=== PATIENT | female | born 1970 | race Caucasian/White ===

== ENCOUNTER 2017-04-29 13:58 | Inpatient (IN) ==
[2017-04-29] MEDS ORDERED: ALBUTEROL/IPRATROPIUM 3 ML NEB RESP TX STA (14:40)
[2017-04-29] MEDS ORDERED: methylPREDNISolone SOD SUC 40 MG/1 ML VIAL IV STA (14:40)
[2017-04-29] MEDS ORDERED: methylPREDNISolone SOD SUC 40 MG/1 ML VIAL ONE (14:51)
--- NOTE | 2017-04-29 15:00 | XRay Report ---
Portable chest. Indication: Shortness of breath. Comparison: January 16, 2017. The heart is normal in size. The left lung is clear. A prominent platelike area of atelectasis has developed in the right lung base. No pneumothorax or pleural effusion. Osseous structures are stable. Impression: Right basilar atelectasis. PROCEDURE INTERPRETED AT [facility] DEPARTMENT OF RADIOLOGY Final Report Signed by: Dr. Dee Connors
[2017-04-29 15:19] LABS: Basophils # 0.1 10*3/uL (0.0-0.2); Basophils % 0.5 % (0.0-0.8); Eosinophils # 0.1 10*3/uL (0.0-0.87); Eosinophils % 0.5 % (0.00-10.9); Hematocrit 41.6 VOL% (35.7-47.0); Hemoglobin 12.9 GM/DL (12.0-16.0); Immature Granulocytes Absolute 0.12 #; Lymphocytes # 1.7 10*3/uL (1.4-4.0); Lymphocytes % 13.5 % (21.3-54.2); Mean Corpuscular Hemoglobin 28 PG (27-34); Mean Platelet Volume 10.5 FL (9.6-12.0); Monocytes % 7.5 % (1.7-12.7); NRBC # 0.04 10*3/uL; Neutrophils # 9.7 10*3/uL (1.4-7.4); Platelet Count 264 T/CUMM (130-400); Red Blood Count 4.62 MC/CUMM (3.8-5.5); Red Cell Distribution Width 16.1 % (9.3-17.3); White Blood Count 12.6 T/CUMM (4-12)
--- NOTE | 2017-04-29 15:29 | Emergency Department Note ---
IClaude Emily, am scribing for, and in the presence of, Michael Maynard MD 14:57. Caesar Waite Phillip K, MD, personally performed the services described in this documentation, ascribed by Kamini Arce in my presence, and it is both accurate and complete 529 . Arrival - Arrival ED Nursing Triage Note: C/o cough, wheezing, and SOB with exertion-onset one month ago, worse since yesterday. Mode of Arrival: Wheelchair Limitations: No Limitations Source: Patient, Significant other - History of Present Illness Onset (ago): day(s) Consistency: constant Severity: mild, moderate Severity scale (1-10): 4 Quality: fullness Date of Last Menstrual Period: menopause <Michael Maynard - Last Filed: 04/29/17 15:53> <Ok Duong - Last Filed: 04/29/17 16:47> - Arrival Chief Complaint: Upper Respiratory Stated Complaint: stage 5 renal failure sob wheezing vomiting - History of Present Illness HPI Narrative: Pt is a 46 y/o female who came to ED with c/o cough, wheezing and RAMIREZ that started 4 days ago. Pt is in Stage V renal failure under supervision of Dr. Morgan. Pt had left arm graft replaced [address] Chang with sutures removed April 20. Pt has associated sxs of left side mild, abdomen pain with N/V , but denies fever in last 24 hours. Pt describes cough as wet with mild sputum. She reports taking phenergan 2 days ago and N/V has resolved. Pt sees Dr. Khan as PCP. Pt is smoker. (Michael Maynard) Pt is a 46 y/o female who came to ED with c/o cough, wheezing and RAMIREZ that started 4 days ago. Pt is in Stage V renal failure under supervision of Dr. Morgan. Pt had left arm graft replaced [address] Chang with sutures removed April 20. Pt has associated sxs of left side mild, abdomen pain with N/V , but denies fever in last 24 hours. Pt describes cough as wet with mild sputum. She reports taking phenergan 2 days ago and N/V has resolved. Pt sees Dr. Khan as PCP. Pt is smoker. (Aust,Kamini) Allergies/Adverse Reactions: Allergies Allergy/AdvReac Type Severity Reaction Status Date / Time No Known Allergies Allergy Verified 04/29/17 14:08 Home Medications: Home Medications Medication Instructions Recorded Confirmed Type Tramadol HCl [Tramadol Tab] 50 mg PO TID PRN #14 tablet 10/15/16 04/29/17 Rx ALPRAZolam [Xanax] 1 mg PO BID 04/10/17 04/29/17 History Hydrocodone/Acetaminophen [[place] 1 each PO Q6H PRN #30 tablet 04/10/17 04/29/17 Rx 10-325 Tablet] Atenolol 50 mg PO QAM 04/29/17 04/29/17 History Review of System - Review of System 12 point system: reviewed and no additional remarkable complaints except as stated - Review of System Constitutional: Absent: fever Respiratory: Present: cough (mild sputum; wet cough), respiratory distress, wheezing Cardiovascular: Present: dyspnea on exertion. Absent: chest pain, syncope Gastrointestinal: Present: abdominal pain (mild on left), nausea, vomiting. Absent: diarrhea Genitourinary female: Absent: dysuria Skin: Absent: rash Neurological: Absent: headache Psychiatric: Absent: anxiety <Michael Maynard - Last Filed: 04/29/17 15:53> Medical,Surgical,& Family Hx - Medical History Cardio: History of: Hypertension Psychological: History of: Anxiety Disorders, Depression Neurology: No history of: Seizures HEENT: History of: Ear Problem (LEFT EARDRUM BURSTED), Eye Problem (GLASSES), Dental Problems (had an infected tooth-Rotted;Missing Teeth) Respiratory: History of: Obstructive Sleep Apnea, Respiratory Problems Renal: History of: Renal Failure, Renal Problems (polycystic kidney disease) No history of: Dialysis (CRF:Has not started Dialysis) Genitourinary: History of: Bladder Problem (HX BLADDER INFECTION AND KIDNEY INFECTION) Gastrointestinal: History of: GERD Musculoskeletal: Comment Only: Musculoskeletal Problems (ARTHRITIS AND BURSITIS BOTH SHOULDERS ) Reproductive: Comment Only: Reproductive Problems (LMP 8 MO AGO) Other: History of: MRSA - Surgical History Cardiac Surgeries: Sugical HX of: Vascular Access Devices (Lt Arm Fistula 01/2017 ;04/10/17 Sched for Elevation AVF) Abdominal Surgeries: Patient denies: Colonoscopy, EGD - Family History Family History: Reports;: Family Diabetes (MOM SISTER), Family Hypertension (DAD ), Family Psychiatric Problems (MOM) - Social History Smoking Status: Current every day smoker Frequency of Alcohol Use: None Type of Drug Use: None Marital Status: Lives With:: Spouse Functional capacity: independent ambulation <Michael Maynard - Last Filed: 04/29/17 15:53> Exam - General General appearance: alert, in no apparent distress - Head Head exam: Present: atraumatic, normocephalic - Eye Eye exam: Present: PERRL, EOMI - ENT ENT exam: Present: mucous membranes moist. Absent: mucous membranes dry - Neck Neck exam: Present: full ROM. Absent: tenderness - Chest Chest inspection: Present: symmetric chest wall rise. Absent: tenderness - Respiratory Respiratory exam: Present: rales (on right base), respiratory distress, wheezes (inspiratory and expiratory wheezing). Absent: normal lung sounds bilaterally - Cardiovascular Cardiovascular exam: Present: tachycardia, normal heart sounds - Abdominal Exam Abdominal exam: Present: soft, tenderness (mild LLQ), normal bowel sounds. Absent: distention, guarding, rebound - Extremities Exam Extremities exam: Present: full ROM, pedal edema (trace, bilaterally). Absent: tenderness - Neurological Exam Neurological exam: Present: alert, oriented X3, CN II-XII intact. Absent: motor sensory deficit - Psychiatric Psychiatric exam: Present: normal affect, normal mood - Skin Skin exam: Present: warm, dry <Michael Maynard - Last Filed: 04/29/17 15:53> Vital Signs: Vital Signs Temperature 98.4 F 04/29/17 14:04 Pulse Rate 67 04/29/17 15:01 Respiratory Rate 20 04/29/17 15:07 Blood Pressure 106/62 04/29/17 14:04 O2 Sat by Pulse Oximetry 98 04/29/17 15:01 Course <CaesarMichael Torres - Last Filed: 04/29/17 15:53> <Ok Duong - Last Filed: 04/29/17 16:47> - Reevaluation(s) Reevaluation #1: Discussed with patient the deterioration of her renal function is such that she does require hospitalization at this time. (Ok Duong) - Consultations Consultation #1: Discussed with hospitalist service who will admit for further evaluation treatment peer (Ok Duong) Results - Labs CBC & BMP: 04/29/17 14:51 04/29/17 14:51 Lab Results: I have reviewed the patients labs - Diagnostic Findings Procedure: Chest x-ray: report reviewed by me (Right basilar atelectasis.) <Michael Maynard - Last Filed: 04/29/17 15:53> - Labs CBC & BMP: 04/29/17 14:51 04/29/17 14:51 <Ok Duong - Last Filed: 04/29/17 16:47> - Labs Labs: Laboratory Tests 04/29/17 14:51 WBC 12.6 H MCHC 31.0 L Neut % (Auto) 77.0 H Lymph % (Auto) 13.5 L Neut # (Auto) 9.7 H [place] # (Auto) 1.0 H Laboratory Tests 04/29/17 14:51 Sodium 136 Potassium 5.5 H Chloride 104 Carbon Dioxide 21 Anion Gap 16.5 H BUN 102 H Creatinine 11.50 H GFR Calculation 4 BUN/Creatinine Ratio 8.00 Glucose 111 H Calculated Osmolality 304.0 Calcium 8.8 ([place],Kamini) I reviewed the results of the lab and noted the very serious deterioration in renal function. (Ok Duong) Disposition <Michael Maynard - Last Filed: 04/29/17 15:53> Case discussed with: patient Time of Disposition: 16:47 <Ok Duong - Last Filed: 04/29/17 16:47> Clinical Impression: Renal failure, COPD Condition: Guarded
[2017-04-29 15:51] LABS: Calcium 8.8 MG/DL (8.5-10.1); Potassium 5.5 MMOL/L (3.5-5.1)
--- NOTE | 2017-04-29 17:49 | Hospitalist History & Physical ---
Assessment and Plan - Time spent with patient Time spent with patient: Greater than 30 minutes (1) Acute renal failure Status: Resolved Assessment and plan: ACUTE ON CHRONIC RENAL FAILURE: Admit to hospitalist services. Consult Dr Morgan (Nephrology) for evaluation of dialysis and recommendations for further care. Will repeat labs in the a.m. Current Visit: No History of Present Illness Chief complaint: acute renal failure History of present illness: Ms. Downing is a 46 year old white female presented to [facility] ED for further evaluation vomiting 3 days, cough and shortness of breath with exertion for about 4 days becoming worse yesterday and more so today. However, patient verbalized that she was able to eat [employer] hamburger on the way to the hospital and was able to keep it down so far. She reports being followed by Dr. Morgan for stage IV renal failure. she reports having a left arm graft replaced [address] Chang and sutures/ai removed in [place] office on Thursday. Denies fever and chills. Past medical history stage IV renal failure, polycystic kidney disease, GERD, hypertension, anxiety disorder, depression, obstructive sleep apnea. Patient is current half to 1 pack per day smoker, denies alcohol, denies illicit drug use. Primary care physician: Dr. Sohail Khan. Renal: Dr. Morgan. After discussion with Dr. Banuelos ED physician and Dr. Mora [facility] he was in agreement patient would be admitted and father evaluation and treatment needed. Home medications will be reviewed and reconciliation to follow. Discuss with family Code Status: Full Code. Home Medications Medication Instructions Recorded Confirmed Type Tramadol HCl [Tramadol Tab] 50 mg PO TID PRN #14 tablet 10/15/16 04/29/17 Rx ALPRAZolam [Xanax] 1 mg PO BID 04/10/17 04/29/17 History Hydrocodone/Acetaminophen [[place] 1 each PO Q6H PRN #30 tablet 04/10/17 04/29/17 Rx 10-325 Tablet] Atenolol 50 mg PO QAM 04/29/17 04/29/17 History Allergies Allergy/AdvReac Type Severity Reaction Status Date / Time No Known Allergies Allergy Verified 04/29/17 14:08 Medical,Surgical,& Family Hx - Medical History Cardio: History of: Hypertension Psychological: History of: Anxiety Disorders, Depression Neurology: No history of: Seizures HEENT: History of: Ear Problem (LEFT EARDRUM BURSTED), Eye Problem (GLASSES), Dental Problems (had an infected tooth-Rotted;Missing Teeth) Respiratory: History of: Obstructive Sleep Apnea, Respiratory Problems Renal: History of: Renal Failure, Renal Problems (polycystic kidney disease) No history of: Dialysis (CRF:Has not started Dialysis) Genitourinary: History of: Bladder Problem (HX BLADDER INFECTION AND KIDNEY INFECTION) Gastrointestinal: History of: GERD Musculoskeletal: Comment Only: Musculoskeletal Problems (ARTHRITIS AND BURSITIS BOTH SHOULDERS ) Reproductive: Comment Only: Reproductive Problems (LMP 8 MO AGO) Other: History of: MRSA - Surgical History Cardiac Surgeries: Sugical HX of: Vascular Access Devices (Lt Arm Fistula 01/2017 ;04/10/17 Sched for Elevation AVF) Abdominal Surgeries: Patient denies: Colonoscopy, EGD - Family History Family History: Reports;: Family Diabetes (MOM SISTER), Family Hypertension (DAD ), Family Psychiatric Problems (MOM) - Social History Smoking Status: Current every day smoker Frequency of Alcohol Use: None Type of Drug Use: None Marital Status: Lives With:: Spouse Functional capacity: independent ambulation Review of systems: ROS completed and pertinent positives and negatives in HPI. Exam - Constitutional Vitals: Period Temp Pulse Resp BP Sys/Mcdonnell Pulse Ox Last 24 Hr 98.4 F-98.4 F 67-74 19-24 106-106/62-62 89-98 General appearance: over weight - Head Head exam: Present: normal inspection - Eye Eye exam: Present: EOMI Pupils: Present: CHENTE - ENT ENT exam: Present: other (moist mucus membranes) - Neck Neck exam: Present: normal inspection - Respiratory Respiratory exam: Present: clear to auscultation bilaterally - Cardiovascular Cardiovascular exam: Present: regular rate and rhythm - GI/Abdominal GI/Abdominal exam: Present: normal bowel sounds, soft. Absent: firm, rebound - Extremities Exam Extremities exam: Present: full ROM, edema (trace bilateral lower extremities), other (left upper arm AV graft surgical site without any drainage or redness noted; steri-strips intact) - Neurological Exam Neurological exam: Present: alert, oriented X3 - Psychiatric Psychiatric exam: Present: normal affect, normal mood - Skin Skin exam: Present: normal color, warm, dry Results - Labs CBC & BMP: 04/29/17 14:51 04/29/17 14:51 Lab Results: I have reviewed the past 24 hour labs - Diagnostic Findings Procedure: Chest x-ray: report reviewed by me (Right basilar atelectasis)
[2017-04-29] MEDS ORDERED: ONDANSETRON 4 MG/2 ML VIAL IV PRN (18:00)
[2017-04-29] MEDS ORDERED: PROMETHAZINE 25 MG/1 ML VIAL IM PRN (18:00)
[2017-04-29] MEDS ORDERED: ACETAMINOPHEN 325 MG TABLET PO PRN (18:00)
[2017-04-29] MEDS ORDERED: GLUCAGON 1 MG VIAL IM PRN (18:00)
[2017-04-29] MEDS ORDERED: DEXTROSE 50% 25 GM/50 ML VIAL IV PRN (18:00)
[2017-04-29] MEDS ORDERED: traMADol 50 MG TABLET PO PRN (22:43)
[2017-04-29] MEDS: ALPRAZolam 0.5 MG TABLET PO SCH (23:20)
[2017-04-29] MEDS: ENOXAPARIN 30 MG/0.3 ML SYRINGE SUBCUT SCH (23:20)
[2017-04-30 08:00] LABS: Magnesium 2.8 MG/DL (1.8-2.4); Osmolality,Calculated 306.8 MOS/KG (273-304)
[2017-04-30 08:03] LABS: Calcium 8.8 MG/DL (8.5-10.1)
[2017-04-30 08:04] LABS: Potassium 6.2 MMOL/L (3.5-5.1)
[2017-04-30] MEDS ORDERED: INSULIN REGULAR 100 UNIT/ML IV ONE (08:28)
[2017-04-30] MEDS ORDERED: DEXTROSE 50% 25 GM/50 ML VIAL IV ONE (08:28)
[2017-04-30] MEDS ORDERED: SODIUM CHLORIDE 0.9% 500 ML IV ONE ×2 (08:28→13:16)
--- NOTE | 2017-04-30 08:32 | Hospitalist Progress Note ---
Assessment and Plan (1) CKD (chronic kidney disease) stage 5, GFR less than 15 ml/min Problem details: No uremic symptoms. Stable for d/c. Status: Acute Assessment and plan: Patient has advanced renal failure and does have AV fistula in left upper extremities but not mature yet. She will likely need to started renal replacement therapy prior to micturition of her AV fistula with an alternate access I will defer to nephrology Current Visit: No (2) Hyperkalemia Status: Acute Assessment and plan: Patient still makes urine and not volume overload on exam. I will give her dose of D50 and insulin. In addition I will give her 500 bolus normal saline. Will monitor potassium level. Patient likely will need to start on renal replacement therapy soon Current Visit: Yes (3) Hypotension Status: Acute Assessment and plan: Hypotension reported although patient is asymptomatic. Patient in fact has history of hypertension but she has not been able to take her medications for 3 days due to vomiting Current Visit: Yes (4) Dyspnea Status: Acute Assessment and plan: Patient has history of smoking and noted to be no wheezing. I will give her nebulizer treatment with albuterol. She probably has chronic obstructive lung disease Current Visit: Yes Hospitalist: Subjective Interval history: Ms. Downing is a 46-year-old female with history of polycystic kidney disease and hypertension. She was admitted with the history of vomiting for 3 days she also has some cough shortness breath and wheezing. She has no fever she has no abdominal pain. She has not able to hold anything. She still makes urine. Her lab work revealed WBC of 12.6 hemoglobin 12.9 hematocrit 21.6 platelet 264 her potassium was 5.5 BUN of 22 creatinine was 11.5. Looking at the lab in September 2016 she had a GFR of 7 with this creatinine of 7.2. This morning her potassium was 6.2. Her BNP was 222. Exam - Constitutional Vitals: Period Temp Pulse Resp BP Sys/Mcdonnell Pulse Ox Last 24 Hr 97.5 F-98.4 F 65-74 18-24 100-119/52-79 89-98 General appearance: no acute distress, morbidly obese - Respiratory Respiratory exam: Present: rhonchi (Patient had a equal entry bilaterally with the diffuse rhonchi), wheezes. Absent: rales - Cardiovascular Cardiovascular exam: Present: regular rate and rhythm. Absent: tachycardia - GI/Abdominal GI/Abdominal exam: Present: normal bowel sounds, soft. Absent: tenderness - Extremities Exam Extremities exam: Present: normal inspection. Absent: edema - Neurological Exam Neurological exam: Present: alert, oriented X3 Results - Labs CBC & BMP: 04/29/17 14:51 04/30/17 07:00 Lab Results: I have reviewed the past 24 hour labs
[2017-04-30] MEDS ORDERED: ALBUTEROL 0.63 MG/3 ML NEB RESP TX PRN (08:40)
[2017-04-30] MEDS ORDERED: PANTOPRAZOLE 40 MG TABLET PO SCH (09:00)
[2017-04-30] MEDS: ALPRAZolam 0.5 MG TABLET PO SCH ×2 (11:23→21:20)
[2017-04-30] MEDS: ATENOLOL 50 MG TABLET PO SCH (11:23)
[2017-04-30] MEDS: PANTOPRAZOLE 40 MG TABLET PO SCH (12:20)
--- NOTE | 2017-04-30 13:09 | Nephrology Consult Note ---
History of Present Illness Chief complaint: Increased BUN and creatinine History of present illness: Ms. Downing is a 46 year old female with history of polycystic kidney disease who I saw in the clinic about 6 months ago with a creatinine of around 5 mg/dL. The patient presents today with complaints of nausea and vomiting which started about 3-4 days ago. The patient had a creatinine of 12 mg/dL on presentation. Patient also has associated acidosis and hyperkalemia. Patient also complains of itching a lot and decreased appetite. Patient has also been having some shortness of breath and cough productive of foamy white sputum. This cough and shortness of breath is worse when she lays down. The patient is also been having some problems with low blood pressure she states she is not taking any of her antihypertensives in the past 3 days or so. The patient has a left arm fistula that was placed about 3 months ago she had to have this elevated about a week ago. ROS: Head -positive headaches ENT -positive sore throat Lymphatics -complains of some swelling under her left arm Hematology - denies bleeding problems Heart - denies chest pain Lungs -positive shortness of breath Abdomen - denies abdominal pain Musculoskeletal -positive arthritis Skin - denies rash, she complains of itching Neurology - denies stroke General -complains of feeling intermittently hot and cold at times PE: General: in no acute distress Eyes: Pupils are round and reactive, conjunctivae are clear ENT: Nose is clear, O/P is benign Neck: Supple, no thyromegaly Lymphatics: No cervical, supraclavicular or axillary adenopathy Heart: Regular rate and rhythm, lower extremities have some mild swelling but no pitting edema Lungs: Clear to auscultation anteriorly, chest expansion symmetric Abdomen: Soft, normoactive bowel sounds, no hepatomegaly Musculoskeletal: No joint erythema or effusions or joint asymmetry Skin: Normal turgor, normal hydration, no rash Neuro/Psych: Alert and cooperative with good insight Home Medications Medication Instructions Recorded Confirmed Type Tramadol HCl [Tramadol Tab] 50 mg PO TID PRN #14 tablet 10/15/16 04/29/17 Rx ALPRAZolam [Xanax] 1 mg PO BID 04/10/17 04/29/17 History Hydrocodone/Acetaminophen [[place] 1 each PO Q6H PRN #30 tablet 04/10/17 04/29/17 Rx 10-325 Tablet] Atenolol 50 mg PO QAM 04/29/17 04/29/17 History Allergies Allergy/AdvReac Type Severity Reaction Status Date / Time No Known Allergies Allergy Verified 04/29/17 14:08 Medical,Surgical,& Family Hx - Medical History Cardio: History of: Hypertension Psychological: History of: Anxiety Disorders, Depression Neurology: No history of: Seizures HEENT: History of: Ear Problem (LEFT EARDRUM BURSTED), Eye Problem (GLASSES), Dental Problems (had an infected tooth-Rotted;Missing Teeth) Respiratory: History of: Obstructive Sleep Apnea, Respiratory Problems Renal: History of: Renal Failure, Renal Problems (polycystic kidney disease) No history of: Dialysis (CRF:Has not started Dialysis) Genitourinary: History of: Bladder Problem (HX BLADDER INFECTION AND KIDNEY INFECTION) Gastrointestinal: History of: GERD Musculoskeletal: Comment Only: Musculoskeletal Problems (ARTHRITIS AND BURSITIS BOTH SHOULDERS ) Reproductive: Comment Only: Reproductive Problems (LMP 8 MO AGO) Other: History of: MRSA - Surgical History Cardiac Surgeries: Sugical HX of: Vascular Access Devices (Lt Arm Fistula 01/2017 ;04/10/17 Sched for Elevation AVF) Abdominal Surgeries: Patient denies: Colonoscopy, EGD - Family History Family History: Reports;: Family Diabetes (MOM SISTER), Family Hypertension (DAD ), Family Psychiatric Problems (MOM) - Social History Smoking Status: Current every day smoker Frequency of Alcohol Use: None Type of Drug Use: None Exam - Vital Signs Vital signs: Period Temp Pulse Resp BP Sys/Mcdonnell Pulse Ox Last 24 Hr 97.5 F-98.4 F 60-74 18-24 62-119/30-79 89-98 Results - Labs CBC & BMP: 04/29/17 14:51 04/30/17 07:00 Assessment and Plan (1) End stage renal disease Status: Acute Assessment and plan: We will see about starting this patient on hemodialysis today or tomorrow. I am going to discuss her case with Dr. Chang and see if we can use her fistula. Current Visit: Yes (2) History of hypertension Status: Acute Current Visit: Yes (3) Obesity Status: Acute Current Visit: Yes (4) Metabolic acidosis Status: Acute Current Visit: Yes (5) Dyspnea Status: Acute Current Visit: Yes (6) Hyperkalemia Status: Acute Current Visit: Yes (7) Hypotension Status: Acute Current Visit: Yes (8) ADPKD (autosomal dominant polycystic kidney disease) Status: Acute Current Visit: No
[2017-04-30] MEDS ORDERED: ALPRAZolam 0.5 MG TABLET PO ONE (13:34)
[2017-04-30] MEDS: ENOXAPARIN 30 MG/0.3 ML SYRINGE SUBCUT SCH (21:43)
[2017-05-01] MEDS ORDERED: BUPIVACAINE 0.25% 50 ML VIAL ONE (06:36)
[2017-05-01] MEDS ORDERED: HEPARIN 5,000 UNIT/1 ML VIAL ONE (06:37)
[2017-05-01] MEDS ORDERED: ceFAZolin 2,000 MG in PREMIX 1 EACH IV ONE (06:45)
--- NOTE | 2017-05-01 07:39 | General Surgery Consult Note ---
Assessment and Plan (1) End stage renal disease Status: Acute Assessment and plan: Plan for tunneled hemodialysis catheter today. Current Visit: Yes History of Present Illness Chief complaint: immature right upper arm AV fistula History of present illness: Ms. Downing is a 46 year old female who presents to the hospital for initiation of hemodialysis. The fistula in the left arm is not mature enough for access. I have been consulted for dialysis catheter placement. Home Medications Medication Instructions Recorded Confirmed Type Tramadol HCl [Tramadol Tab] 50 mg PO TID PRN #14 tablet 10/15/16 04/29/17 Rx ALPRAZolam [Xanax] 1 mg PO BID 04/10/17 04/29/17 History Hydrocodone/Acetaminophen [[place] 1 each PO Q6H PRN #30 tablet 04/10/17 04/29/17 Rx 10-325 Tablet] Atenolol 50 mg PO QAM 04/29/17 04/29/17 History Allergies Allergy/AdvReac Type Severity Reaction Status Date / Time No Known Allergies Allergy Verified 04/29/17 14:08 Medical,Surgical,& Family Hx - Medical History Cardio: History of: Hypertension Psychological: History of: Anxiety Disorders, Depression Neurology: No history of: Seizures HEENT: History of: Ear Problem (LEFT EARDRUM BURSTED), Eye Problem (GLASSES), Dental Problems (had an infected tooth-Rotted;Missing Teeth) Respiratory: History of: Obstructive Sleep Apnea, Respiratory Problems Renal: History of: Renal Failure, Renal Problems (polycystic kidney disease) No history of: Dialysis (CRF:Has not started Dialysis) Genitourinary: History of: Bladder Problem (HX BLADDER INFECTION AND KIDNEY INFECTION) Gastrointestinal: History of: GERD Musculoskeletal: Comment Only: Musculoskeletal Problems (ARTHRITIS AND BURSITIS BOTH SHOULDERS ) Reproductive: Comment Only: Reproductive Problems (LMP 8 MO AGO) Other: History of: MRSA - Surgical History Cardiac Surgeries: Sugical HX of: Vascular Access Devices (Lt Arm Fistula 01/2017 ;04/10/17 Sched for Elevation AVF) Abdominal Surgeries: Patient denies: Colonoscopy, EGD - Family History Family History: Reports;: Family Diabetes (MOM SISTER), Family Hypertension (DAD ), Family Psychiatric Problems (MOM) - Social History Smoking Status: Current every day smoker Frequency of Alcohol Use: None Type of Drug Use: None - Constitutional Constitutional: Present: as per HPI - EENT Nose, mouth and throat: Present: as per HPI - Cardiovascular Cardiovascular: Present: as per HPI - Respiratory Respiratory: Present: as per HPI - Gastrointestinal Gastrointestinal: Present: as per HPI - Genitourinary Genitourinary: Present: as per HPI - Musculoskeletal Musculoskeletal: Present: as per HPI - Neurological Neurological: Present: as per HPI - Endocrine Endocrine: Present: as per HPI Hematologic/Lymphatic: Present: as per HPI Exam - Constitutional Vitals: Period Temp Pulse Resp BP Sys/Mcdonnell Pulse Ox Last 24 Hr 96.8 F-97.6 F 60-87 18-20 62-107/30-73 93-98 General appearance: no acute distress, over weight - Head Head exam: Present: normal inspection, normocephalic - Eye Eye exam: Present: EOMI Pupils: Present: CHENTE - ENT ENT exam: Present: normal exam Mouth exam: Present: normal external inspection, normal voice - Neck Neck exam: Present: normal inspection, trachea midline - Respiratory Respiratory exam: Present: clear to auscultation bilaterally. Absent: accessory muscle use, chest wall tenderness - Cardiovascular Cardiovascular exam: Present: RRR. Absent: systolic murmur, tachycardia - GI/Abdominal GI/Abdominal exam: Present: normal bowel sounds, soft. Absent: tenderness, rebound - Extremities Exam Extremities exam: Present: normal inspection, normal capillary refill - Back Exam Back exam: Present: normal inspection - Neurological Exam Neurological exam: Present: alert, oriented X3 Speech: Present: normal - Skin Skin exam: Present: normal color, warm Results - Labs CBC & BMP: 04/29/17 14:51 05/01/17 06:49
--- NOTE | 2017-05-01 08:37 | Anesthesia Post-Op ---
Anesthesia Post OP - Post Ansesthetic Evaluation Patient seen in post op: Yes Resp: within normal limits CV: within normal limits Mental: within normal limits Temp: within normal limits [id number]: within normal limits Nausea and Vomiting: within normal limits Pain: within normal limits
[2017-05-01] MEDS ORDERED: fentaNYL 100 MCG/2 ML VIAL ONE (08:41)
[2017-05-01] MEDS ORDERED: PROPOFOL 200 MG/20 ML VIAL IV ONE (08:41)
[2017-05-01] MEDS ORDERED: KETAMINE 500 MG/10 ML VIAL ONE (08:42)
[2017-05-01] MEDS ORDERED: MIDAZOLAM 2 MG/2 ML VIAL ONE (08:42)
--- NOTE | 2017-05-01 08:45 | Operative Note ---
Date of procedure: 05/01/17 Pre-op diagnosis: Renal failure with immature AV fistula Post-op diagnosis: same Procedure: Preoperative diagnosis Renal failure with need for hemodialysis access Postoperative diagnosis Same Procedures performed 1. Right internal jugular vein tunneled hemodialysis catheter placement 2. Ultrasound guidance and interpretation of images 3. Fluoroscopic guidance and interpretation of images Findings The right internal jugular vein is compressible and it was accessed for hemodialysis access. The tip of the catheter was place in the right atrium. Patient tolerated procedure well and both ports worked well. Complications none apparent Specimen None Indications Renal failure with need for access for hemodialysis Description of procedure The patient was taken to the operating room and transferred to the operating table in the supine position. Pressure points are padded and SCDs placed lower extremity. Monitored anesthesia was administered and the neck was prepped and draped sterile fashion using chloride same. Preoperative antibiotics were administered and a timeout was performed. Ultrasound was used to identify the internal jugular vein and local anesthetic was infiltrated around the vein. Local anesthetic was also administered around the planned tract site down to the anterior chest wall below the clavicle. The vein was accessed on first stick and nonpulsatile venous blood was obtained. A wire was placed using Seldinger technique. An incision was made alongside the wire using a long blade scalpel and a separate incision below the clavicle was made with an 11 blade scalpel. A 19 cm catheter was tunneled from the chest incision into the neck wound and a dilator peel-away sheath was placed over the wire. The wire and dilator was removed and the catheter was placed to the peel-away sheath. The catheter was secured in place in the right atrium on fluoroscopic images. Both returned blood easily and were flushed with heparin. The catheter was secured in place using 3-0 nylon sutures and the neck incision was closed with 3 -0 nylon suture. Sterile dressings were applied. The patient was awakened from anesthesia and transferred to recovery. Postoperative plan Begin hemodialysis and obtained chest x-ray postop Implants: 19cm tunneled hemodialysis catheter Anesthesia: MAC, local Surgeon / Physician: Chencho Chang Estimated blood loss: minimal Specimens: none sent Condition: stable Disposition: PACU Results - Labs CBC & BMP: 04/29/17 14:51 05/01/17 06:49 Discharge Plan - Discharge Medications No Action ALPRAZolam [Xanax] 1 mg PO BID Hydrocodone/Acetaminophen [[place] 10-325 Tablet] 1 each PO Q6H PRN #30 tablet PRN Reason: Pain Atenolol 50 mg PO QAM Tramadol HCl [Tramadol Tab] 50 mg PO TID PRN #14 tablet PRN Reason: bacl/leg pain - Follow Up or Referral - Forms/Instructions
--- NOTE | 2017-05-01 09:36 | XRay Report ---
Exam: XR chest 1V portable Date: 05/01/2017 8:44 AM Indication: Follow-up dialysis catheter placement, history of polycystic kidney disease Comparison: 04/29/[address] scan abdomen pelvis outside institution 10/13/2016 Technical:AP Right IJ catheter has been placed the distal tip is in superior vena cava. Masslike density or atelectatic change present in the right infrahilar region. External cardiac leads are present. There is elevation right hemidiaphragm. Patchy infiltrate is present in the right base. No pneumothorax present. The heart is mildly enlarged. Impression: 1. Interval placement of the right IJ catheter without pneumothorax 2. Atelectatic change infiltrate or effusion in the right base. Underlying mass cannot be totally excluded in the right base. PROCEDURE INTERPRETED AT [facility] DEPARTMENT OF RADIOLOGY Final Report Signed by: Dr. Zheng Gordon
[2017-05-01] MEDS ORDERED: GLUCAGON 1 MG VIAL IM PRN (10:48)
[2017-05-01] MEDS ORDERED: DEXTROSE 50% 25 GM/50 ML VIAL IV PRN (10:48)
[2017-05-01] MEDS: ALPRAZolam 0.5 MG TABLET PO SCH ×2 (10:49→21:25)
[2017-05-01] MEDS: PANTOPRAZOLE 40 MG TABLET PO SCH (10:51)
--- NOTE | 2017-05-01 10:54 | Nephrology Progress Note ---
Nephrology - PN: Subj Interval history: Patient seen on hemodialysis, she is tolerating it well will continue her treatment unchanged. We will plan on her second treatment tomorrow. Patient's end-stage renal disease is secondary to polycystic kidney disease. The patient has a left arm fistula that is about 3 months old however it had to be elevated about a week or so ago attempt at using this fistula was unsuccessful yesterday. Exam (PN)-Nephrology - Vital Signs Vital signs: Period Temp Pulse Resp BP Sys/Mcdonnell Pulse Ox Last 24 Hr 96.8 F-98.1 F 59-114 16-20 86-137/49-78 91-98 - Lab 04/29/17 14:51 05/01/17 06:49 Most recent lab results Calcium 8.8 MG/DL (8.5-10.1) 04/30/17 07:00 Magnesium 2.8 MG/DL (1.8-2.4) H 04/30/17 07:00 Assessment and Plan (1) End stage renal disease Status: Acute Assessment and plan: We will see about starting this patient on hemodialysis today or tomorrow. I am going to discuss her case with Dr. Chang and see if we can use her fistula. Current Visit: Yes (2) History of hypertension Status: Acute Current Visit: Yes (3) Obesity Status: Acute Current Visit: Yes (4) Metabolic acidosis Status: Acute Current Visit: Yes (5) Dyspnea Status: Acute Current Visit: Yes (6) Hyperkalemia Status: Acute Current Visit: Yes (7) Hypotension Status: Acute Current Visit: Yes (8) ADPKD (autosomal dominant polycystic kidney disease) Status: Acute Current Visit: No
--- NOTE | 2017-05-01 15:14 | Hospitalist Progress Note ---
Assessment and Plan (1) Dyspnea Status: Resolved Assessment and plan: Resolved Current Visit: Yes (2) Obesity Status: Chronic Current Visit: Yes (3) End stage renal disease Status: Chronic Assessment and plan: Initiate hemodialysis. Current Visit: Yes (4) Polycystic kidney disease Status: Chronic Current Visit: No (5) Hypertension Status: Chronic Current Visit: No Qualifiers: Hypertension type: essential hypertension Qualified Code(s): I10 - Essential (primary) hypertension Hospitalist: Subjective Interval history: The patient is now started dialysis. She is doing acceptable. No shortness of breath or chest pain. Continuing with current therapy. Exam - Constitutional Vitals: Period Temp Pulse Resp BP Sys/Mcdonnell Pulse Ox Last 24 Hr 96.8 F-98.1 F 59-114 16-20 87-137/49-78 91-98 General appearance: normal weight - Head Head exam: Present: normal inspection - ENT ENT exam: Present: normal exam - Respiratory Respiratory exam: Present: clear to auscultation bilaterally - Cardiovascular Cardiovascular exam: Present: regular rate and rhythm - GI/Abdominal GI/Abdominal exam: Present: normal bowel sounds - Neurological Exam Neurological exam: Present: alert, oriented X3, CN II-XII intact - Psychiatric Psychiatric exam: Present: normal affect, normal mood - Skin Skin exam: Present: normal color, warm Results - Labs CBC & BMP: 04/29/17 14:51 05/01/17 06:49
[2017-05-01] MEDS: ATENOLOL 50 MG TABLET PO SCH (15:23)
[2017-05-01] MEDS: ENOXAPARIN 30 MG/0.3 ML SYRINGE SUBCUT SCH (22:35)
[2017-05-02 04:45] LABS: Hepatitis A Ab IgM Quant 0.07 Index; Hepatitis A Ab IgM Result Negative (Negative); Hepatitis B Core IgM Quant 0.16 Index; Hepatitis B Core IgM Result Negative (Negative); Hepatitis B Surface Ag Quant < 0.10 Index; Hepatitis B Surface Ag Result Negative (Negative); Hepatitis C Virus Ab Quant 0.09 Index; Hepatitis C Virus Ab Result Negative (Negative)
[2017-05-02] MEDS: PANTOPRAZOLE 40 MG TABLET PO SCH (08:02)
[2017-05-02] MEDS: ALPRAZolam 0.5 MG TABLET PO SCH ×2 (08:02→20:44)
[2017-05-02] MEDS ORDERED: PHENOL 1.4% THROAT SPRAY 177 ML BOTTLE PO PRN (09:53)
--- NOTE | 2017-05-02 10:03 | Dialysis Note ---
Dialysis Note - Dialysis Note Patient seen on dialysis. She is tolerating the procedure. Blood pressure is 99/50. Cardiovascular is regular rate. Lungs are clear to auscultation. Abdomen is soft.
[2017-05-02] MEDS ORDERED: HEPARIN 10,000 UNIT/10 ML VIAL IV SCH (11:30)
[2017-05-02] MEDS: ATENOLOL 50 MG TABLET PO SCH (12:00)
[2017-05-02] MEDS: ONDANSETRON 4 MG/2 ML VIAL IV PRN ×2 (12:20→20:44)
--- NOTE | 2017-05-02 15:01 | Hospitalist Progress Note ---
Assessment and Plan (1) Hyperkalemia Status: Acute Assessment and plan: 5.6 today we will repeat a BMP tomorrow. She had a second dialysis today Current Visit: Yes (2) Obesity Status: Chronic Current Visit: Yes (3) End stage renal disease Status: Chronic Current Visit: Yes Hospitalist: Subjective Interval history: Patient seen interviewed and examined and chart has been has been reviewed. She underwent second dialysis today and doing well though after dialysis she felt rather nauseated. She has been able to eat lunch. Repeat chemistries tomorrow attention to magnesium and BMP Exam - Constitutional Vitals: Period Temp Pulse Resp BP Sys/Mcdonnell Pulse Ox Last 24 Hr 96.6 F-98.4 F 60-78 18-24 103-146/57-87 90-94 General appearance: morbidly obese - Head Head exam: Present: normocephalic - Eye Eye exam: Present: EOMI Pupils: Present: CHENTE - Respiratory Respiratory exam: Present: clear to auscultation bilaterally - Cardiovascular Cardiovascular exam: Present: regular rate and rhythm - GI/Abdominal GI/Abdominal exam: Present: normal bowel sounds, soft - Extremities Exam Extremities exam: Present: full ROM - Neurological Exam Neurological exam: Present: alert, oriented X3, CN II-XII intact - Psychiatric Psychiatric exam: Present: normal affect, normal mood - Skin Skin exam: Present: normal color, warm, dry Results - Labs CBC & BMP: 04/29/17 14:51 05/01/17 06:49 Lab Results: I have reviewed the past 24 hour labs
[2017-05-02] MEDS: ENOXAPARIN 30 MG/0.3 ML SYRINGE SUBCUT SCH (22:47)
[2017-05-03] MEDS: ONDANSETRON 4 MG/2 ML VIAL IV PRN (04:17)
[2017-05-03] MEDS: ALPRAZolam 0.5 MG TABLET PO SCH ×2 (09:08→21:19)
[2017-05-03] MEDS: ATENOLOL 50 MG TABLET PO SCH (09:09)
[2017-05-03] MEDS: PANTOPRAZOLE 40 MG TABLET PO SCH (09:09)
--- NOTE | 2017-05-03 10:47 | Nephrology Progress Note ---
Nephrology - PN: Subj Interval history: The patient is resting comfortably no acute changes. Tolerated dialysis on yesterday. Plan for dialysis on tomorrow. Exam (PN)-Nephrology - Vital Signs Vital signs: Period Temp Pulse Resp BP Sys/Mcdonnell Pulse Ox Last 24 Hr 97.0 F-97.6 F 70-80 18-24 103-146/50-87 90-92 - General Appearance General appearance: well-developed, well-nourished EENT: ATNC Neck: supple Respiratory: clear Cardiology: regular rate, regular rhythm Gastrointestinal: normoactive bowel sounds, no tenderness Neurologic: alert and oriented x3 Musculoskeletal: no clubbing Psychiatric: mood/affect appropriate - Lab 04/29/17 14:51 05/01/17 06:49 Most recent lab results Calcium 8.8 MG/DL (8.5-10.1) 04/30/17 07:00 Magnesium 2.8 MG/DL (1.8-2.4) H 04/30/17 07:00 Assessment and Plan (1) Dyspnea Status: Resolved Assessment and plan: Resolved Current Visit: Yes (2) Obesity Status: Chronic Current Visit: Yes (3) End stage renal disease Status: Chronic Assessment and plan: Continue with scheduled hemodialysis. Current Visit: Yes (4) Polycystic kidney disease Status: Chronic Current Visit: No (5) Hypertension Status: Chronic Current Visit: No Qualifiers: Hypertension type: essential hypertension Qualified Code(s): I10 - Essential (primary) hypertension
--- NOTE | 2017-05-03 12:58 | Hospitalist Progress Note ---
Assessment and Plan (1) Hyperkalemia Status: Acute Assessment and plan: Patient had dialysis yesterday and the expected to have another tomorrow. There is no chemistry done today. No complaints will repeat chemistry tomorrow for dialysis Current Visit: Yes (2) Obesity Status: Chronic Current Visit: Yes (3) End stage renal disease Status: Chronic Assessment and plan: Patient on dialysis. Current Visit: Yes Hospitalist: Subjective Interval history: Patient has been seen interviewed and examined and chart has been reviewed. She is offering no complaint. I believe the be another dialysis tomorrow. Liya. Post dialysis tomorrow. Exam - Constitutional Vitals: Period Temp Pulse Resp BP Sys/Mcdonnell Pulse Ox Last 24 Hr 97.0 F-97.6 F 70-80 18-22 98-124/50-80 90-92 General appearance: over weight - Head Head exam: Present: normocephalic, atraumatic - Eye Eye exam: Present: EOMI Pupils: Present: CHENTE - ENT ENT exam: Present: normal oropharynx - Respiratory Respiratory exam: Present: clear to auscultation bilaterally - Cardiovascular Cardiovascular exam: Present: regular rate and rhythm - GI/Abdominal GI/Abdominal exam: Present: normal bowel sounds, soft - Extremities Exam Extremities exam: Present: full ROM - Neurological Exam Neurological exam: Present: alert, oriented X3, CN II-XII intact - Psychiatric Psychiatric exam: Present: normal affect, normal mood - Skin Skin exam: Present: normal color, warm, dry Results - Labs CBC & BMP: 04/29/17 14:51 05/01/17 06:49 Lab Results: I have reviewed the past 24 hour labs
[2017-05-03] MEDS: ENOXAPARIN 30 MG/0.3 ML SYRINGE SUBCUT SCH (22:26)
[2017-05-04] MEDS: PANTOPRAZOLE 40 MG TABLET PO SCH (08:32)
[2017-05-04] MEDS: ALPRAZolam 0.5 MG TABLET PO SCH ×2 (08:33→10:18)
[2017-05-04] MEDS: ATENOLOL 50 MG TABLET PO SCH (08:33)
--- NOTE | 2017-05-04 08:37 | Nephrology Progress Note ---
Nephrology - PN: Subj Interval history: Patient is feeling better she is not having any nausea or vomiting. Review of systems pulmonary she denies shortness of breath Physical exam general the patient is in no acute distress, she did become emotional and teary up a little bit when she started thinking about having to do dialysis the rest of her life. Assessment/plan 1. End-stage renal disease-this patient for third dialysis treatment today, I spoke to personnel at [facility] and they will be able to accommodate her of this week at 12:25 PM for her first dialysis there. I have consulted social services counselor to help with arrangements. 2. Hyperkalemia-this is improved 3. Metabolic acidosis-this is improved with dialysis 4. Polycystic kidney disease From a renal standpoint the patient should be okay to be discharged today or tomorrow. Exam (PN)-Nephrology - Vital Signs Vital signs: Period Temp Pulse Resp BP Sys/Mcdonnell Pulse Ox Last 24 Hr 96.9 F-98.0 F 63-76 18-22 98-154/53-71 92-95 - Lab 04/29/17 14:51 05/01/17 06:49 Most recent lab results Calcium 8.8 MG/DL (8.5-10.1) 04/30/17 07:00 Magnesium 2.8 MG/DL (1.8-2.4) H 04/30/17 07:00 Assessment and Plan (1) End stage renal disease Status: Chronic Assessment and plan: We will see about starting this patient on hemodialysis today or tomorrow. I am going to discuss her case with Dr. Chang and see if we can use her fistula. Current Visit: Yes (2) History of hypertension Status: Acute Current Visit: Yes (3) Obesity Status: Chronic Current Visit: Yes (4) Metabolic acidosis Status: Acute Current Visit: Yes (5) Dyspnea Status: Resolved Current Visit: Yes (6) Hyperkalemia Status: Acute Current Visit: Yes (7) Hypotension Status: Acute Current Visit: Yes (8) ADPKD (autosomal dominant polycystic kidney disease) Status: Acute Current Visit: No
--- NOTE | 2017-05-04 08:58 | Dialysis Note ---
Dialysis Note - Dialysis Note Patient seen on hemodialysis, she is tolerating this well will continue her treatment unchanged.
[2017-05-04 09:48] LABS: Magnesium 2.1 MG/DL (1.8-2.4); Osmolality,Calculated 292.3 MOS/KG (273-304); Potassium 4.4 MMOL/L (3.5-5.1)
--- NOTE | 2017-05-04 15:44 | Discharge Summary ---
Diagnosis - Discharge Diagnosis (1) Hyperkalemia Status: Acute (2) Obesity Status: Chronic (3) End stage renal disease Status: Chronic Discharge Plan - Discharge Data Disposition: Disch To Home/Self Care Condition at Discharge: Stable Discharge Diet: heart healthy Activity: increase activity as tolerated Hygiene: no restrictions Weight Bearing at Discharge: weight bear as tolerated Driving: not until seen by doctor - Discharge Medications New Budesonide [Budesonide Neb Soln] 0.5 mg RESP TX BID #60 neb Albuterol/Ipratropium Neb [Duoneb] 3 ml RESP TX RT Q6H PRN #120 neb PRN Reason: Shortness Of Breath/Wheezing Continue ALPRAZolam [Xanax] 1 mg PO BID Hydrocodone/Acetaminophen [[place] 10-325 Tablet] 1 each PO Q6H PRN #30 tablet PRN Reason: Pain Atenolol 50 mg PO QAM Tramadol HCl [Tramadol Tab] 50 mg PO TID PRN #14 tablet PRN Reason: bacl/leg pain - Follow Up or Referral - Forms/Instructions Exam - Constitutional Vitals: Period Temp Pulse Resp BP Sys/Mcdonnell Pulse Ox Last 24 Hr 96.9 F-98.0 F 63-74 18-22 98-154/53-83 85-95 General appearance: morbidly obese - Head Head exam: Present: normocephalic, atraumatic - Eye Eye exam: Present: EOMI Pupils: Present: CHENTE - ENT ENT exam: Present: normal oropharynx - Respiratory Respiratory exam: Present: clear to auscultation bilaterally - Cardiovascular Cardiovascular exam: Present: regular rate and rhythm - GI/Abdominal GI/Abdominal exam: Present: normal bowel sounds, soft - Extremities Exam Extremities exam: Present: full ROM - Neurological Exam Neurological exam: Present: alert, oriented X3, CN II-XII intact - Psychiatric Psychiatric exam: Present: normal affect, normal mood - Skin Skin exam: Present: normal color, warm, dry Discharge Results Labs on day of discharge: Labs from last 24 hours 05/04/17 09:02 Sodium 141 Potassium 4.4 Chloride 107 Carbon Dioxide 28 Anion Gap 10.4 BUN 46 H Creatinine 6.60 H GFR Calculation 8 BUN/Creatinine Ratio 6.00 Glucose 93 Calculated Osmolality 292.3 Calcium 8.0 L Magnesium 2.1 DS: Provider Date of admission: 04/29/17 17:16 Primary care physician: . No PCP Attending physician on admission: Peter Mora MD Consults: 04/29/17 21:07 Consult to Pastoral Services [CONS] Routine Comment: Pastoral Screen: Request [employer] Visit Ashley Issues Pastoral Screen Source of Request: Patient 04/29/17 22:43 Consult to Physician [CONS] Routine Comment: ESRD with azotemia Consulting Provider: Maik Morgan Person Notified: JASON Date Notified: 04/30/17 Time Notified: 09:05 04/30/17 16:15 Consult to Physician [CONS] Routine Comment: for tunneled dialysis catheter Consulting Provider: Chencho Chang Person Notified: md maher Date Notified: 05/01/17 Time Notified: 09:33 05/01/17 06:46 Consult to Anesthesiology [CONS] Routine Consulting Provider: Reason for Anesthesiology: Pre-op Clearance 05/04/17 08:32 Consult to Case Mgmt/Social Srvs [CONS] Routine Reason for Case Mgmt/Social Srvs: Dialysis Consult Comment: New start on dialysis, needs placement in [facility] 05/04/17 14:38 Consult to Case Mgmt/Social Srvs [CONS] Routine Reason for Case Mgmt/Social Srvs: Other Consult Comment: needs home oxygen set up. O2 sat on room air is 85-86% Discharging clinician: Bk Driscoll MD
[2017-05-04 19:39] VITALS: BP 143/78
== END 2017-05-04 19:00 | disposition home or self-care (01) | DRG 469 ==
LOC: N.ED 13:58 → SUATTDRO 17:16 → N.EDINP 17:16 → N.5E 20:15
PROVIDERS: ADMIT Internal Medicine; ATTEND Internal Medicine Infectious Disease

== ENCOUNTER 2017-12-09 19:53 | Inpatient (IN) ==
[2017-12-09] MEDS ORDERED: VANCOMYCIN INJ 1,000 MG in SODIUM CHLORIDE 0.9% 250 ML IV STA (21:27)
[2017-12-09] MEDS ORDERED: methylPREDNISolone SOD SUC 125 MG/2 ML VIAL IV STA (21:27)
[2017-12-09] MEDS ORDERED: NITROGLYCERIN 2% OINT 1 INCH/GM PACK TOP STA (21:27)
[2017-12-09] MEDS ORDERED: FUROSEMIDE 100 MG/10 ML VIAL IV STA (21:27)
[2017-12-09] MEDS ORDERED: ONDANSETRON 4 MG/2 ML VIAL IV STA (21:27)
[2017-12-09] MEDS ORDERED: ALBUTEROL 2.5 MG/3 ML NEB RESP TX SCH (21:30)
[2017-12-09 21:36] LABS: Basophils # 0.1 10*3/uL (0.0-0.2); Basophils % 0.5 % (0.0-0.8); Eosinophils % 0.1 % (0.00-10.9); Hematocrit 47.2 VOL% (35.7-47.0); Hemoglobin 13.3 GM/DL (12.0-16.0); Immature Granulocytes % 1.1 %; Immature Granulocytes Absolute 0.11 #; Lymphocytes # 1.7 10*3/uL (1.4-4.0); Lymphocytes % 15.8 % (21.3-54.2); Mean Corpuscular HGB Conc 28.2 GM/DL (32-36); Mean Corpuscular Hemoglobin 28 PG (27-34); Mean Corpuscular Volume 99.2 FL (87-102); Mean Platelet Volume 10.5 FL (9.6-12.0); Monocytes # 0.9 10*3/uL (0.11-0.8); Monocytes % 8.2 % (1.7-12.7); NRBC # 0.12 10*3/uL; Neutrophils # 7.8 10*3/uL (1.4-7.4); Neutrophils % 74.3 % (38.7-73.9); Platelet Count 268 T/CUMM (130-400); Red Blood Count 4.76 MC/CUMM (3.8-5.5); Red Cell Distribution Width 16.6 % (9.3-17.3); White Blood Count 10.5 T/CUMM (4-12)
[2017-12-09 21:46] LABS: PT Patient Result 10.6 SECS
[2017-12-09 21:59] LABS: ABG Base Excess -10.2 MMOL/L (-2.5-2.5); ABG HCO3 16.2 MMOL/L (20-26); ABG Oxygen Saturation 85.8 % (95-100); ABG PO2 58.7 MM HG (80-95); ABG TCO2 20.9 MMOL/L (23-27); Allen Test Positive
[2017-12-09 22:00] LABS: ABG PH 7.076 (7.35-7.45)
[2017-12-09 22:01] LABS: ABG PCO2 76.2 MM HG (35-48); Alanine Aminotransferase 12 U/L (13-56); Albumin 3.7 G/DL (3.4-5.0); Alkaline Phosphatase 64 U/L (45-117); Aspartate Amino Transferase 10 U/L (0-37); Bilirubin,Total < 0.39 MG/DL (0.2-1.0); Blood Urea Nitrogen 73 MG/DL (7-18); Calcium 9.1 MG/DL (8.5-10.1); Glucose 98 MG/DL (74-106); Osmolality,Calculated 296.7 MOS/KG (273-304); Sodium 138 MMOL/L (136-145); Total Protein 7.2 G/DL (6.4-8.3)
[2017-12-09 22:13] LABS: Troponin I Only 0.221 NG/ML (0.00-0.045)
[2017-12-09] MEDS ORDERED: FUROSEMIDE 100 MG/10 ML VIAL ONE (22:23)
[2017-12-09] MEDS ORDERED: methylPREDNISolone SOD SUC 125 MG/2 ML VIAL ONE (22:23)
[2017-12-09] MEDS ORDERED: ONDANSETRON 4 MG/2 ML VIAL ONE (22:23)
[2017-12-09] MEDS ORDERED: NITROGLYCERIN 2% OINT 1 INCH/GM PACK TOP ONE (22:23)
[2017-12-09] MEDS ORDERED: VANCOMYCIN 1,000 MG VIAL ONE (22:23)
[2017-12-09] MEDS ORDERED: SODIUM BICARBONATE 50 MEQ/50 ML VIAL IV STA (23:31)
[2017-12-09] MEDS ORDERED: SODIUM BICARBONATE 50 MEQ/50 ML SYRINGE IV ONE (23:41)
[2017-12-10] MEDS ORDERED: FUROSEMIDE 40 MG/4 ML VIAL IV ONE (00:15)
[2017-12-10] MEDS ORDERED: BISACODYL 10 MG SUPP RECTAL PRN (00:16)
[2017-12-10] MEDS ORDERED: ALBUTEROL/IPRATROPIUM 3 ML NEB RESP TX PRN (00:16)
[2017-12-10 01:08] LABS: Allen Test Positive
[2017-12-10 01:13] LABS: ABG Base Excess -7.7 MMOL/L (-2.5-2.5); ABG HCO3 22.3 MMOL/L (20-26); ABG Oxygen Saturation 91.6 % (95-100); ABG PCO2 66.7 MM HG (35-48); ABG PO2 70.5 MM HG (80-95); ABG TCO2 24.4 MMOL/L (23-27)
[2017-12-10 01:17] LABS: ABG PH 7.143 (7.35-7.45)
[2017-12-10] MEDS ORDERED: SODIUM BICARBONATE 50 MEQ/50 ML VIAL IV ONE (01:36)
[2017-12-10 01:43] LABS: Apearance,Urine CLEAR (Clear); Bacteria,Urine Moderate /HPF (Few); Bilirubin,Urine Negative (Negative); Blood, Urine Small mg/dL (Negative); Glucose,Urine (UA) 50 mg/dL (Negative); Ketones,Urine Negative (Negative); Mucus,Urine Occasional /LPF (Occasional); Nitrite,Urine Negative (Negative); Protein,Urine 30 MG/DL; RBC,Urine 1 /HPF (0-4); Squamous Epithelial Cell,Urine Occasional /HPF (0-10); Urine Color Straw (Yellow); Urine Specific Gravity 1.005 (1.001-1.035); Urine Urobilinogen < 2.0 EU/DL (0.2-1.0); WBC,Urine 2 /HPF (0-6)
[2017-12-10] MEDS ORDERED: SODIUM BICARBONATE 50 MEQ/50 ML SYRINGE IV ONE (02:31)
[2017-12-10 04:30] LABS: Basophils % 0.3 % (0.0-0.8); Hematocrit 44.3 VOL% (35.7-47.0); Hemoglobin 12.9 GM/DL (12.0-16.0); Immature Granulocytes % 1.2 %; Immature Granulocytes Absolute 0.14 #; Lymphocytes # 0.5 10*3/uL (1.4-4.0); Lymphocytes % 4.4 % (21.3-54.2); Mean Corpuscular HGB Conc 29.1 GM/DL (32-36); Mean Corpuscular Hemoglobin 28 PG (27-34); Mean Corpuscular Volume 96.3 FL (87-102); Mean Platelet Volume 11.2 FL (9.6-12.0); Monocytes # 0.2 10*3/uL (0.11-0.8); Monocytes % 1.3 % (1.7-12.7); NRBC # 0.06 10*3/uL; Neutrophils # 10.7 10*3/uL (1.4-7.4); Neutrophils % 92.8 % (38.7-73.9); Platelet Count 228 T/CUMM (130-400); Red Cell Distribution Width 16.4 % (9.3-17.3); White Blood Count 11.6 T/CUMM (4-12)
[2017-12-10 04:36] LABS: Albumin 3.7 G/DL (3.4-5.0); Bilirubin,Total 0.7 MG/DL (0.2-1.0); Calcium 8.6 MG/DL (8.5-10.1); Osmolality,Calculated 306.4 MOS/KG (273-304); Potassium 4.2 MMOL/L (3.5-5.1); Total Protein 6.8 G/DL (6.4-8.3)
[2017-12-10 04:43] LABS: Band Neutrophils 2 % (0-10); Lymphocytes 6 % (20-55); Nucleated Red Blood Cells 2 (0-5); Platelet Estimate Normal; Segmented Neutrophils 90 % (50-85); Total Cells Counted 100
[2017-12-10 04:44] LABS: Polychromasia Slight
[2017-12-10] MEDS: HEPARIN 5,000 UNIT/1 ML VIAL SUBCUT SCH ×2 (06:26→12:51)
[2017-12-10] MEDS: ASPIRIN EC 81 MG TABLET PO SCH (10:41)
[2017-12-10] MEDS: PIPERACILLIN/TAZOBACTAM 3,375 MG in SODIUM CHLORIDE 0.9% 100 ML IV SCH ×2 (10:41→21:32)
[2017-12-10] MEDS: NICOTINE 14 MG/24 HR PATCH TRANSDERM SCH (10:41)
[2017-12-10] MEDS: POLYETHYLENE GLYCOL POWDER 17 GM PACK PO SCH (10:49)
[2017-12-10 11:32] LABS: Hepatitis A Ab IgM Quant 0.11 Index; Hepatitis A Ab IgM Result Negative (Negative); Hepatitis B Core IgM Quant 0.19 Index; Hepatitis B Core IgM Result Negative (Negative); Hepatitis B Surface Ag Quant < 0.10 Index; Hepatitis B Surface Ag Result Negative (Negative); Hepatitis C Virus Ab Quant 0.05 Index; Hepatitis C Virus Ab Result Negative (Negative)
[2017-12-10] MEDS ORDERED: LORazepam 2 MG/1 ML VIAL IV PRN (12:17)
[2017-12-10] MEDS ORDERED: ALPRAZolam 0.5 MG TABLET PO PRN (12:17)
[2017-12-10] MEDS ORDERED: CALCIUM ACETATE 667 MG CAPSULE PO SCH (12:30)
[2017-12-10] MEDS: ATENOLOL 50 MG TABLET PO SCH (12:45)
[2017-12-10] MEDS: traMADol 50 MG TABLET PO PRN ×2 (12:45→21:33)
[2017-12-10] MEDS: ESCITALOPRAM 10 MG TABLET PO SCH (12:45)
[2017-12-10] MEDS ORDERED: ALTEPLASE 2 MG VIAL IV ONE (14:30)
[2017-12-10] MEDS ORDERED: HEPARIN 10,000 UNIT/10 ML VIAL IV SCH (14:30)
[2017-12-10] MEDS: CALCIUM ACETATE 667 MG CAPSULE PO SCH (19:08)
[2017-12-11] MEDS: HEPARIN 5,000 UNIT/1 ML VIAL SUBCUT SCH ×3 (01:16→23:54)
[2017-12-11] MEDS: CALCIUM ACETATE 667 MG CAPSULE PO SCH ×3 (09:39→17:17)
[2017-12-11 10:38] LABS: Calcium 8.1 MG/DL (8.5-10.1); Osmolality,Calculated 291.5 MOS/KG (273-304); Potassium 4.3 MMOL/L (3.5-5.1)
[2017-12-11 10:48] LABS: Basophils % 0.3 % (0.0-0.8); Eosinophils % 0.1 % (0.00-10.9); Hematocrit 42.8 VOL% (35.7-47.0); Immature Granulocytes % 0.8 %; Immature Granulocytes Absolute 0.11 #; Lymphocytes # 1.2 10*3/uL (1.4-4.0); Lymphocytes % 9.2 % (21.3-54.2); Mean Corpuscular HGB Conc 29.7 GM/DL (32-36); Mean Corpuscular Hemoglobin 28 PG (27-34); Mean Corpuscular Volume 95.5 FL (87-102); Mean Platelet Volume 11.6 FL (9.6-12.0); Monocytes # 0.8 10*3/uL (0.11-0.8); Monocytes % 6.2 % (1.7-12.7); NRBC # 0.09 10*3/uL; Neutrophils # 10.8 10*3/uL (1.4-7.4); Neutrophils % 83.4 % (38.7-73.9); Platelet Count 211 T/CUMM (130-400); Red Blood Count 4.48 MC/CUMM (3.8-5.5); Red Cell Distribution Width 16.4 % (9.3-17.3)
[2017-12-11 10:49] LABS: Hemoglobin 12.7 GM/DL (12.0-16.0)
[2017-12-11] MEDS: NICOTINE 14 MG/24 HR PATCH TRANSDERM SCH (13:39)
[2017-12-11] MEDS: ATENOLOL 50 MG TABLET PO SCH (13:39)
[2017-12-11] MEDS: ESCITALOPRAM 10 MG TABLET PO SCH (13:39)
[2017-12-11] MEDS: ASPIRIN EC 81 MG TABLET PO SCH (13:39)
[2017-12-11] MEDS: POLYETHYLENE GLYCOL POWDER 17 GM PACK PO SCH (13:39)
[2017-12-11] MEDS: PIPERACILLIN/TAZOBACTAM 3,375 MG in SODIUM CHLORIDE 0.9% 100 ML IV SCH ×2 (13:51→21:57)
[2017-12-11] MEDS: traMADol 50 MG TABLET PO PRN (15:14)
[2017-12-12] MEDS: ONDANSETRON 4 MG/2 ML VIAL IV PRN ×2 (00:42→10:21)
[2017-12-12 07:09] VITALS: BP 110/72
[2017-12-12] MEDS: POLYETHYLENE GLYCOL POWDER 17 GM PACK PO SCH (08:01)
[2017-12-12] MEDS: ATENOLOL 50 MG TABLET PO SCH (08:01)
[2017-12-12] MEDS: ASPIRIN EC 81 MG TABLET PO SCH (08:01)
[2017-12-12] MEDS: NICOTINE 14 MG/24 HR PATCH TRANSDERM SCH (08:01)
[2017-12-12] MEDS: ESCITALOPRAM 10 MG TABLET PO SCH (08:01)
[2017-12-12] MEDS: CALCIUM ACETATE 667 MG CAPSULE PO SCH ×2 (08:01→12:23)
[2017-12-12] MEDS: PIPERACILLIN/TAZOBACTAM 3,375 MG in SODIUM CHLORIDE 0.9% 100 ML IV SCH (08:03)
[2017-12-12] MEDS: HEPARIN 5,000 UNIT/1 ML VIAL SUBCUT SCH (12:23)
== END 2017-12-12 13:31 | disposition home or self-care (01) | DRG 640 ==
LOC: N.ED 19:53 → N.EDINP 12-10 00:11 → N.TELES 12-10 01:41 → N.5E 12-11 18:01
PROVIDERS: ADMIT Internal Medicine; ATTEND Internal Medicine

== ENCOUNTER 2019-08-24 21:55 | Inpatient (IN) ==
[2019-08-24] MEDS ORDERED: hydrALAZINE 20 MG/1 ML VIAL IV STA (23:04)
[2019-08-24] MEDS ORDERED: ALBUTEROL/IPRATROPIUM 3 ML NEB RESP TX STA (23:04)
[2019-08-24] MEDS ORDERED: KETOROLAC 30 MG/1 ML VIAL IV STA (23:05)
[2019-08-24] MEDS ORDERED: ORPHENADRINE 60 MG/2 ML VIAL IV STA (23:06)
[2019-08-25 00:13] LABS: Basophils # 0.1 10*3/uL (0.0-0.2); Basophils % 0.8 % (0.0-0.8); Eosinophils # 0.2 10*3/uL (0.0-0.87); Hematocrit 38.2 VOL% (35.7-47.0); Hemoglobin 11.5 GM/DL (12.0-16.0); Immature Granulocytes % 0.5 %; Immature Granulocytes Absolute 0.06 #; Lymphocytes # 1.1 10*3/uL (1.4-4.0); Mean Corpuscular HGB Conc 30.1 GM/DL (32-36); Mean Platelet Volume 11.1 FL (9.6-12.0); Monocytes % 8.8 % (1.7-12.7); Neutrophils % 78.9 % (38.7-73.9); Platelet Count 249 T/CUMM (130-400); Red Blood Count 3.94 MC/CUMM (3.8-5.5); Red Cell Distribution Width 21.6 % (9.3-17.3); White Blood Count 11.9 T/CUMM (4-12)
[2019-08-25 00:36] LABS: Alanine Aminotransferase 11 U/L (13-56); Albumin 3.4 G/DL (3.4-5.0); Alkaline Phosphatase 98 U/L (45-117); Aspartate Amino Transferase 19 U/L (0-37); Calcium 9.4 MG/DL (8.5-10.1); Total Protein 8.3 G/DL (6.4-8.3)
[2019-08-25 00:37] LABS: Blood Urea Nitrogen 58 MG/DL (7-18); CKMB % 5.2 %; Estimated Glom Filtration Rate 4 ML/MIN; Glucose 99 MG/DL (74-106); Osmolality,Calculated 296.3 MOS/KG (273-304); Troponin I 0.019 NG/ML (0.00-0.045)
[2019-08-25 00:42] LABS: Barbiturates Screen,Urine Negative (Negative); Benzodiazepines Screen,Urine Positive (Negative); Cannabinoid Screen,Urine Negative (Negative); Phencyclidine Screen,Urine Negative (Negative)
[2019-08-25 01:32] LABS: PT Patient Result 10.8 SECS (9.6-12.2)
[2019-08-25 02:07] LABS: Opiate Screen,Urine Positive (Negative)
[2019-08-25 03:11] LABS: Apearance,Urine Slightly Hazy (Clear); Protein,Urine >=500 MG/DL; Urine Color Yellow (Yellow); Urine Specific Gravity 1.007 (1.001-1.035)
[2019-08-25 03:12] LABS: Bilirubin,Urine Negative (Negative); Blood, Urine Small mg/dL (Negative); Glucose,Urine (UA) 150 mg/dL (Negative); Ketones,Urine Negative (Negative); Mucus,Urine Occasional /LPF (Occasional); Nitrite,Urine Negative (Negative); RBC,Urine 2 /HPF (0-4); Squamous Epithelial Cell,Urine Occasional /HPF (0-10); Urine Urobilinogen < 2.0 EU/DL (0.2-1.0); WBC,Urine 3 /HPF (0-6)
[2019-08-25] MEDS ORDERED: ALBUTEROL 2.5 MG/3 ML NEB RESP TX PRN (06:05)
[2019-08-25] MEDS ORDERED: DOCUSATE SODIUM 100 MG CAPSULE PO PRN (06:05)
[2019-08-25] MEDS ORDERED: ONDANSETRON 4 MG/2 ML VIAL IV PRN (06:05)
[2019-08-25] MEDS ORDERED: hydrALAZINE 20 MG/1 ML VIAL IV PRN (06:38)
[2019-08-25 06:51] LABS: ABG Base Excess -1.4 MMOL/L (-2.5-2.5); ABG HCO3 23.2 MMOL/L (20-26); ABG Oxygen Saturation 96.5 % (95-100); ABG PCO2 64.6 MM HG (35-48); ABG PH 7.245 (7.35-7.45); ABG PO2 98.2 MM HG (80-95); ABG TCO2 24.9 MMOL/L (23-27); Allen Test Positive; Pt O2 Delivery Device Simple Mask
[2019-08-25] MEDS: HEPARIN 5,000 UNIT/1 ML VIAL SUBCUT SCH ×2 (09:50→18:09)
[2019-08-25] MEDS: LACTULOSE 20 GM/30 ML UDCUP PO SCH ×2 (11:06→16:57)
[2019-08-25] MEDS: NICOTINE 21 MG/24 HR PATCH TRANSDERM SCH (11:06)
[2019-08-25] MEDS: predniSONE 20 MG TABLET PO SCH (11:07)
[2019-08-25] MEDS: THIAMINE 100 MG TABLET PO SCH (11:07)
[2019-08-25] MEDS: LEVOTHYROXINE 100 MCG TABLET PO SCH (11:07)
[2019-08-25] MEDS: FOLIC ACID 1 MG TABLET PO SCH (11:07)
[2019-08-25] MEDS: ESCITALOPRAM 10 MG TABLET PO SCH (11:09)
[2019-08-25] MEDS: CALCIUM ACETATE 667 MG CAPSULE PO SCH ×2 (15:16→18:09)
[2019-08-25] MEDS ORDERED: HEPARIN 10,000 UNIT/10 ML VIAL IV PRN (15:32)
[2019-08-25] MEDS: ALBUTEROL/IPRATROPIUM 3 ML NEB RESP TX SCH ×3 (15:38→23:23)
[2019-08-26] MEDS: LACTULOSE 20 GM/30 ML UDCUP PO SCH (00:42)
[2019-08-26] MEDS: HEPARIN 5,000 UNIT/1 ML VIAL SUBCUT SCH ×4 (00:55→23:04)
[2019-08-26] MEDS: ALBUTEROL/IPRATROPIUM 3 ML NEB RESP TX SCH ×5 (02:04→20:06)
[2019-08-26 03:51] LABS: ABG Base Excess -2.1 MMOL/L (-2.5-2.5); ABG HCO3 27.5 MMOL/L (20-26); ABG Oxygen Saturation 97.7 % (95-100); ABG PO2 112.8 MM HG (80-95); ABG TCO2 29.6 MMOL/L (23-27); Allen Test Positive; Pt O2 Delivery Device Simple Mask
[2019-08-26 04:06] LABS: ABG PCO2 70.3 MM HG (35-48)
[2019-08-26 05:07] LABS: Calcium 9.7 MG/DL (8.5-10.1); Osmolality,Calculated 281.8 MOS/KG (273-304)
[2019-08-26 05:53] LABS: Basophils % 0.4 % (0.0-0.8); Eosinophils % 0.1 % (0.00-10.9); Hematocrit 47.1 VOL% (35.7-47.0); Hemoglobin 13.5 GM/DL (12.0-16.0); Immature Granulocytes % 0.4 %; Immature Granulocytes Absolute 0.04 #; Lymphocytes # 0.6 10*3/uL (1.4-4.0); Lymphocytes % 6.6 % (21.3-54.2); Mean Corpuscular HGB Conc 28.7 GM/DL (32-36); Mean Corpuscular Volume 101.1 FL (87-102); Mean Platelet Volume 11.4 FL (9.6-12.0); Monocytes % 7.6 % (1.7-12.7); NRBC # 0.02 10*3/uL; Neutrophils % 84.9 % (38.7-73.9); Platelet Count 208 T/CUMM (130-400); Red Blood Count 4.66 MC/CUMM (3.8-5.5); Red Cell Distribution Width 21.7 % (9.3-17.3)
[2019-08-26 05:59] LABS: Anisocytosis 1+; Ovalocytes 1+; Platelet Estimate Normal
[2019-08-26] MEDS ORDERED: LORazepam 2 MG/1 ML VIAL ONE (08:30)
[2019-08-26] MEDS ORDERED: LORazepam 2 MG/1 ML VIAL IV ONE (08:30)
[2019-08-26] MEDS: NICOTINE 21 MG/24 HR PATCH TRANSDERM SCH (09:31)
[2019-08-26] MEDS: ESCITALOPRAM 10 MG TABLET PO SCH (09:32)
[2019-08-26] MEDS: THIAMINE 100 MG TABLET PO SCH (09:32)
[2019-08-26] MEDS: CALCIUM ACETATE 667 MG CAPSULE PO SCH ×3 (09:32→16:07)
[2019-08-26] MEDS: predniSONE 20 MG TABLET PO SCH (09:32)
[2019-08-26] MEDS: LEVOTHYROXINE 100 MCG TABLET PO SCH (09:33)
[2019-08-26] MEDS: FOLIC ACID 1 MG TABLET PO SCH (09:33)
[2019-08-26] MEDS: amLODIPine 10 MG TABLET PO SCH (10:29)
[2019-08-26] MEDS ORDERED: HALOPERIDOL 5 MG/ML AMP IV ONE (10:48)
[2019-08-26 12:38] LABS: ABG Base Excess -1.8 MMOL/L (-2.5-2.5); ABG HCO3 22.9 MMOL/L (20-26); ABG Oxygen Saturation 97.3 % (95-100); ABG PCO2 66.5 MM HG (35-48); ABG PH 7.231 (7.35-7.45); ABG TCO2 24.8 MMOL/L (23-27)
[2019-08-26] MEDS: ACETAMINOPHEN 325 MG TABLET PO PRN ×2 (13:50→23:40)
[2019-08-26] MEDS ORDERED: KETOROLAC 15 MG/1 ML VIAL IV ONE (15:51)
[2019-08-27] MEDS: ALBUTEROL/IPRATROPIUM 3 ML NEB RESP TX SCH ×7 (00:06→23:27)
[2019-08-27 04:57] LABS: Basophils % 0.3 % (0.0-0.8); Immature Granulocytes % 0.4 %; Immature Granulocytes Absolute 0.04 #; Lymphocytes # 0.7 10*3/uL (1.4-4.0); Mean Corpuscular HGB Conc 30.2 GM/DL (32-36); Mean Corpuscular Volume 96.2 FL (87-102); Mean Platelet Volume 10.6 FL (9.6-12.0); Monocytes % 7.9 % (1.7-12.7); NRBC # 0.04 10*3/uL; Neutrophils % 84.4 % (38.7-73.9); Platelet Count 189 T/CUMM (130-400); Red Blood Count 4.99 MC/CUMM (3.8-5.5); Red Cell Distribution Width 21.7 % (9.3-17.3); White Blood Count 10.5 T/CUMM (4-12)
[2019-08-27 05:01] LABS: Calcium 9.7 MG/DL (8.5-10.1); Osmolality,Calculated 270.5 MOS/KG (273-304)
[2019-08-27 05:05] LABS: Hematocrit 47.7 VOL% (35.7-47.0)
[2019-08-27 05:06] LABS: Hemoglobin 14.5 GM/DL (12.0-16.0)
[2019-08-27 05:10] LABS: ABG Base Excess 1.1 MMOL/L (-2.5-2.5); ABG HCO3 25.3 MMOL/L (20-26); ABG Oxygen Saturation 94.1 % (95-100); ABG PCO2 52.4 MM HG (35-48); ABG PH 7.339 (7.35-7.45); ABG TCO2 24.2 MMOL/L (23-27); Allen Test Positive; Pt O2 Delivery Device BIPAP
[2019-08-27] MEDS: HEPARIN 5,000 UNIT/1 ML VIAL SUBCUT SCH ×3 (06:40→23:07)
[2019-08-27] MEDS: CALCIUM ACETATE 667 MG CAPSULE PO SCH ×3 (09:53→17:58)
[2019-08-27] MEDS: LEVOTHYROXINE 100 MCG TABLET PO SCH (09:53)
[2019-08-27] MEDS: predniSONE 20 MG TABLET PO SCH (09:53)
[2019-08-27] MEDS: amLODIPine 10 MG TABLET PO SCH (09:54)
[2019-08-27] MEDS: FOLIC ACID 1 MG TABLET PO SCH (09:54)
[2019-08-27] MEDS: ESCITALOPRAM 10 MG TABLET PO SCH (09:54)
[2019-08-27] MEDS: THIAMINE 100 MG TABLET PO SCH (09:54)
[2019-08-27] MEDS: NICOTINE 21 MG/24 HR PATCH TRANSDERM SCH (09:55)
[2019-08-27] MEDS: LACTULOSE 20 GM/30 ML UDCUP PO SCH (09:59)
[2019-08-27] MEDS: ONDANSETRON 4 MG TABLET PO PRN ×2 (13:29→20:33)
[2019-08-27] MEDS: chlordiazePOXIDE 10 MG CAPSULE PO SCH ×2 (15:29→20:28)
[2019-08-28] MEDS: ALBUTEROL/IPRATROPIUM 3 ML NEB RESP TX SCH ×4 (03:02→11:16)
[2019-08-28 04:11] LABS: ABG Base Excess 3.1 MMOL/L (-2.5-2.5); ABG Oxygen Saturation 93.6 % (95-100); ABG PH 7.309 (7.35-7.45); ABG PO2 71.7 MM HG (80-95); ABG TCO2 27.5 MMOL/L (23-27); Allen Test Positive; Pt O2 Delivery Device CPAP
[2019-08-28 06:14] LABS: Calcium 9.4 MG/DL (8.5-10.1); Osmolality,Calculated 278.5 MOS/KG (273-304)
[2019-08-28] MEDS: HEPARIN 5,000 UNIT/1 ML VIAL SUBCUT SCH (06:14)
[2019-08-28] MEDS: chlordiazePOXIDE 10 MG CAPSULE PO SCH (08:25)
[2019-08-28] MEDS: THIAMINE 100 MG TABLET PO SCH (08:26)
[2019-08-28] MEDS: amLODIPine 10 MG TABLET PO SCH (08:26)
[2019-08-28] MEDS: ESCITALOPRAM 10 MG TABLET PO SCH (08:27)
[2019-08-28] MEDS: LEVOTHYROXINE 100 MCG TABLET PO SCH (08:27)
[2019-08-28] MEDS: FOLIC ACID 1 MG TABLET PO SCH (08:27)
[2019-08-28] MEDS: NICOTINE 21 MG/24 HR PATCH TRANSDERM SCH (08:28)
[2019-08-28] MEDS: CALCIUM ACETATE 667 MG CAPSULE PO SCH ×2 (08:32→12:33)
[2019-08-28] MEDS: LACTULOSE 20 GM/30 ML UDCUP PO SCH (08:33)
[2019-08-28 08:49] VITALS: BP 151/88
[2019-08-28] MEDS: predniSONE 20 MG TABLET PO SCH (09:56)
== END 2019-08-28 13:24 | disposition home or self-care (01) | DRG 642 ==
LOC: N.ED 21:55 → SUATTDRO 08-25 06:03 → N.EDINP 08-25 06:03 → N.ICU 08-25 06:17 → N.2E 08-26 18:36
PROVIDERS: ADMIT Internal Medicine; ATTEND Internal Medicine